=== PATIENT | male | born 1995 | race Two or more races ===

== ENCOUNTER 2017-05-27 09:37 | Emergency (ER) | payer MEDICAID ==
[2017-05-27 09:51] VITALS: O2SAT 98
[2017-05-27] MEDS ORDERED: NS 1,000 ML IV ONE (10:15)
--- NOTE | 2017-05-27 10:25 | EDPHY ---
General Narrative: CHIEF COMPLAINT: Cyst, fever HISTORY OF PRESENT ILLNESS: Patient complains of cyst on his lower back and buttocks as well as fever. This started on Saturday with noticing the cyst. It was very painful and has worsened. Noted a fever on Saturday and Saturday subjectively. He has had some sweating and chills with. No abdominal pain at any time. No difficulty with bowel movements. He has had some white, foul-smelling drainage from it but no brown or fecal like material. No trauma or injury. No rectal instrumentation. No history of inflammatory bowel. No abdominal surgeries. Does report previous abscesses before that were never incised and drained. No other associated complaints or modifying factors. REVIEW OF SYSTEMS: Ten systems reviewed and are negative unless otherwise noted in the HPI PCP: None SPECIALISTS: None PAST MEDICAL HISTORY: None PAST SURGICAL HISTORY: None SOCIAL HISTORY: Nonsmoker. Currently a student at [employer] FAMILY HISTORY: Noncontributory EXAMINATION General Appearance: Alert, no distress Head: normocephalic, atraumatic Eyes: Pupils equal and round, no conjunctival pallor or injection ENT, Mouth: Mucous membranes moist. Airway patent Neck: Normal inspection, supple, non-tender Respiratory: Lungs are clear to auscultation. No wheeze, rhonchi or crackles Cardiovascular: Tachycardic rate. Regular rhythm. No murmur. Gastrointestinal: Abdomen is soft and nontender. Nondistended. No tympany rigidity. Back: non-tender, no bony abnormalities Neurological: A&O, nonfocal, normal gait. Strength is symmetric Skin: Warm and dry, no rash. No cellulitis. There is an area of fluctuance on the left upper buttock in the gluteal cleft. This approximately 5 cm from the anal verge. There is spontaneous drainage. Some surrounding induration. Extremities: Nontender, no pedal edema. Symmetric range of motion Psychiatric: Mood and affect normal DIFFERENTIAL DIAGNOSES: Including but not limited to pilonidal cyst, perianal abscess, perirectal abscess, simple abscess MDM: 10:15 a.m. Suspected pilonidal cyst on the left upper buttock, but this is in close proximity to the anus. Thus I have ordered a CT of the pelvis to rule out perirectal and perianal abscess. He is in no acute distress with no abdominal pain. Laboratory studies order, CT ordered. 10:45 a.m. CBC does reveal a leukocytosis. Creatinine is normal and CT scan is pending. 11:50 a.m. Contacted by radiologist Dr. Mackey. CT scan has rule out perirectal and perianal abscess. There is an area of abscess collection that is superficial. I have re-evaluated the patient and we will proceed with incision and drainage. 12:30 p.m. Large pilonidal cyst that has been drained without complication. Tolerated well. Quarter-inch iodoform packing in place. We discussed daily wound care. We discussed 48 hr wound check for we discussed follow up with general surgeon for definitive care as this will likely return. He will be discharged home on pain medication short course, and antibiotics. We discussed ED precautions. I discussed this with Dr. Miles. 12:50 p.m. Notified by RN, Gray, that prior to discharging the patient he noted a heart rate of 120. I informed him that I would be happy to re-evaluate the patient. I did so. His heart rate is 110 when I enter the room. He does feel a bit warmer, thus I checked his temperature. It was 38 C. I do not feel he has any acute distress. All treated for the possibility of fever. He will be treated as above with antibiotics and repeat evaluation in 24-48 hours for the abscess. I stressed the importance of returning should he develop any abdominal pain, constipation or diarrhea. I do feel he is still stable for discharge home. SUPERVISION: Patient was independently examined, but I discussed the case with my secondary supervising physician Dr. Miles - Diagnostics Imaging Results: Imaging Impressions Pelvis CT 05/27/17 10:15 Impression: Pilonidal cyst with a thick wall and surrounding inflammatory changes suggesting it is infected. Results called and discussed with Boby Shine on 05/27/2017, 11:53. - History Smoking Status: Never smoked - Objective Vital Signs: Initial Vital Signs Temperature (C) 98.2 F 05/27/17 09:49 Heart Rate 94 05/27/17 09:49 Respiratory Rate 18 05/27/17 09:49 Blood Pressure 135/86 H 05/27/17 09:49 O2 Sat (%) 98 05/27/17 09:49 O2 Delivery Mode Room Air Allergies/Adverse Reactions: cephalexin [From Keflex] Allergy (Verified 05/27/17 10:20) antibiotic Allergy (Unknown, Uncoded 05/27/17 09:48) Home Medications: Medication Instructions Recorded Sulfamethox/Tmp 800/160 mg 1 tab PO BID 10 Days tab 05/27/17 [Bactrim Ds] oxyCODONE HCL/ACETAMINOPHEN 1 each PO Q4-6PRN PRN #11 tablet 05/27/17 [Percocet 5-325 mg Tablet] Laboratory Results: Laboratory Results 05/27/17 10:25 05/27/17 05/27/17 10:25 10:22 WBC 13.61 10^3/uL H 10^3/uL (3.80-9.50) RBC 5.73 10^6/uL 10^6/uL (4.40-6.38) Hgb 16.5 g/dL g/dL (13.7-17.5) POC Hgb 17.3 gm/dL gm/dL (13.7-17.5) Hct 48.6 % % (40.0-51.0) POC Hct 51 % % (40-51) MCV 84.8 fL fL (81.5-99.8) MCH 28.8 pg pg (27.9-34.1) MCHC 34.0 g/dL g/dL (32.4-36.7) RDW 13.5 % % (11.5-15.2) Plt Count 345 10^3/uL 10^3/uL (150-400) MPV 9.6 fL fL (8.7-11.7) Neut % (Auto) 83.9 % H % (39.3-74.2) Lymph % (Auto) 9.6 % L % (15.0-45.0) Craig % (Auto) 5.4 % % (4.5-13.0) Eos % (Auto) 0.3 % L % (0.6-7.6) Baso % (Auto) 0.3 % % (0.3-1.7) Nucleat RBC Rel Count 0.0 % % (0.0-0.2) Absolute Neuts (auto) 11.42 10^3/uL H 10^3/uL (1.70-6.50) Absolute Lymphs (auto) 1.31 10^3/uL 10^3/uL (1.00-3.00) Absolute Monos (auto) 0.73 10^3/uL 10^3/uL (0.30-0.80) Absolute Eos (auto) 0.04 10^3/uL 10^3/uL (0.03-0.40) Absolute Basos (auto) 0.04 10^3/uL 10^3/uL (0.02-0.10) Absolute Nucleated RBC 0.00 10^3/uL 10^3/uL (0-0.01) Immature Gran % 0.5 % % (0.0-1.1) Immature Gran # 0.07 10^3/uL 10^3/uL (0.00-0.10) POC Sodium 143 mEq/L mEq/L (134-144) POC Potassium 4.0 mEq/L mEq/L (3.3-5.0) POC Chloride 105 mEq/L mEq/L (97-110) POC BUN 11 mg/dL mg/dL (7-23) POC Creatinine 1.0 mg/dL mg/dL (0.7-1.3) POC Glucose 100 mg/dL mg/dL (70-100) Medications Given: Discontinued Medications Sodium Chloride (Ns) 1,000 mls @ 0 mls/hr IV EDNOW ONE; Wide Open PRN Reason: Protocol Stop: 05/27/17 10:16 Last Admin: 05/27/17 10:32 Dose: 1,000 mls Point of Care Test Results: 05/27/17 10:22 POC Sodium 143 POC Potassium 4.0 POC Chloride 105 POC BUN 11 POC Creatinine 1.0 POC Glucose 100 Departure - Departure Disposition: Home, Routine, Self-Care Clinical Impression: Pilonidal cyst with abscess Condition: Good Instructions: Pilonidal Cyst (ED) Additional Instructions: 1. Daily wound care as discussed 2. Antibiotics to completion 3. Contact the general surgeon as provided for definitive care 4. Return to emergency department in 48 hr for wound check and removal of packing. This may be done at the general surgeon's office if seen within this time frame 5. ED precautions as discussed Referrals: Je Huang MD [Medical Doctor] - As per Instructions Stand Alone Forms: School Excuse Prescriptions: oxyCODONE HCL/ACETAMINOPHEN [Percocet 5-325 mg Tablet] 1 each PO Q4-6PRN PRN # 11 tablet PRN Reason: Pain, Breakthrough Sulfamethox/Tmp 800/160 mg [Bactrim Ds] 1 tab PO BID 10 Days tab
[2017-05-27] MEDS ORDERED: IOPAMIDOL (ISOVUE-300) 100 ML BTL ONE (10:34)
[2017-05-27 10:36] LABS: % IMMATURE GRANULYOCYTES 0.5 % (0.0-1.1); ABSOLUTE IMMATURE GRANULOCYTES 0.07 10^3/uL (0.00-0.10); ADD DIFF? NO; ADD MORPH? NO; ADD SCAN? NO; ATYPICAL LYMPHOCYTE FLAG 0 (0-99); FRAGMENT RBC FLAG 0 (0-99); HEMATOCRIT 48.6 % (40.0-51.0); HEMOGLOBIN 16.5 g/dL (13.7-17.5); LEFT SHIFT FLG 0 (0-99); LIPEMIA HEMOLYSIS FLAG 90 (0-99); MEAN CELL HEMOGLOBIN 28.8 pg (27.9-34.1); MEAN CELL VOLUME 84.8 fL (81.5-99.8); MEAN PLATELET VOLUME 9.6 fL (8.7-11.7); PLATELET CLUMPS FLAG 20 (0-99); PLATELET COUNT 345 10^3/uL (150-400); RED BLOOD CELL COUNT 5.73 10^6/uL (4.40-6.38); RED CELL DISTRIBUTION WIDTH 13.5 % (11.5-15.2)
[2017-05-27] MEDS ORDERED: IBUPROFEN 600 MG TAB PO ONE ×2 (13:00→13:01)
[2017-05-27] MEDS ORDERED: IBUPROFEN SUSP 100 MG/5 ML UDCUP PO ONE (13:01)
[2017-05-27 13:08] VITALS: BP 122/82; PULSE 115; RESP 16; TEMP 99.7
== END 2017-05-27 13:09 | disposition home or self-care (01) ==
PROC: 0H98XZZ Drainage of Buttock Skin, External Approach (ICD-10-PCS; principal; 2017-05-27)
DX: L05.01 Pilonidal cyst with abscess (principal); E86.9 Volume depletion, unspecified
CPT/HCPCS: 82947-QW; Q9967

== ENCOUNTER 2017-05-29 09:47 | Emergency (ER) | payer MEDICAID ==
[2017-05-29 10:01] VITALS: O2SAT 97
--- NOTE | 2017-05-29 10:28 | EDPHY ---
H & P Time Seen by Provider: 05/29/17 10:21 HPI/ROS: CHIEF COMPLAINT: Wound recheck HISTORY OF PRESENT ILLNESS: 22-year-old male seen the ER 2 days ago for pilonidal abscess incised and drained and packed would return 2 days for recheck. States that he is feeling progressive improvement. Denies acute symptoms. Denies back pain. Denies fever chills. Denies nausea or vomiting. PHYSICAL EXAM (Prior to examination, patient consented to physical exam, hands were washed and my usual and customary physical exam procedures followed) 1) GENERAL: Well-developed, well-nourished, alert and oriented. Appears to be in no acute distress. 2) HEAD: Normocephalic 3) HEENT: sclera anicteric 4) LUNGS: Breathing comfortably. 5) SKIN: Cleft of the patient's buttock packing in place, removed. No Further areas of fluctuance or drainage. Smoking Status: Never smoked Constitutional: Initial Vital Signs Temperature (C) 36.9 C 05/29/17 10:00 Heart Rate 85 05/29/17 10:00 Respiratory Rate 16 05/29/17 10:00 Blood Pressure 128/77 H 05/29/17 10:00 O2 Sat (%) 97 05/29/17 10:00 O2 Delivery Mode Room Air Allergies/Adverse Reactions: cephalexin [From Keflex] Allergy (Verified 05/29/17 09:59) antibiotic Allergy (Unknown, Uncoded 05/29/17 09:59) Home Medications: Medication Instructions Recorded Sulfamethox/Tmp 800/160 mg 1 tab PO BID 10 Days tab 05/27/17 [Bactrim Ds] oxyCODONE HCL/ACETAMINOPHEN 1 each PO Q4-6PRN PRN #11 tablet 05/27/17 [Percocet 5-325 mg Tablet] MDM/Departure - MDM ED Course/Re-evaluation: I removed this patient's packing the cleft of the buttock. He appears to be progressively improving. Plan will be discharge, given follow-up information with General surgery Dr. Je Huang. He has been informed that he may develop further pilonidal abscesses in the future. Keep taking antibiotics until finished. Care of patient under supervision of secondary supervising physician Dr Vital . Old medical records reviewed - Depart Disposition: Home, Routine, Self-Care Clinical Impression: Pilonidal abscess Condition: Good Instructions: Pilonidal Cyst (ED) Additional Instructions: change your dressing every day. Take your medication as directed until finished. Referrals: Je Huang MD [Medical Doctor] - 2-3 days, call for appt. (Dr Huang is a surgeon)
[2017-05-29 10:56] VITALS: BP 136/83; PULSE 94; RESP 18; TEMP 98.2
== END 2017-05-29 10:55 | disposition home or self-care (01) ==
DX: L05.01 Pilonidal cyst with abscess (principal)
CPT/HCPCS: G0463